=== PATIENT | female | born 1990 | race American Indian/Alaskan Native ===

== ENCOUNTER 2021-04-14 09:42 | Emergency (ER) | payer MEDICAID ==
[2021-04-14 11:42] LABS: Basophils # (Auto) 0.1 K/mm3 (0.0-0.1); Basophils % (Auto) 0.9 % (0.0-1.8); Eosinophils # (Auto) 0.1 K/mm3 (0.0-0.4); Eosinophils % (Auto) 1.7 % (0.0-4.3); Hematocrit 39.1 % (30.3-42.9); Hemoglobin 12.9 gm/dl (10.1-14.3); Lymphocytes # (Auto) 1.9 K/mm3 (1.2-5.4); Lymphocytes % (Auto) 35.2 % (13.4-35.0); Mean Corpuscular HGB Conc 33 % (30-34); Mean Corpuscular Volume 90 fl (79-97); Monocytes # (Auto) 0.4 K/mm3 (0.0-0.8); Monocytes % (Auto) 6.4 % (0.0-7.3); Platelet Count 206 K/mm3 (140-440); Red Blood Count 4.37 M/mm3 (3.65-5.03); Red Cell Distribution Width 14.3 % (13.2-15.2)
[2021-04-14 12:08] LABS: Alanine Aminotransferase 9 units/L (7-56); Blood Urea Nitrogen 12 mg/dL (7-17); Calcium 9.3 mg/dL (8.4-10.2); Hemolysis Index 0
[2021-04-14 12:15] LABS: BUN/Creatinine Ratio 17
--- NOTE | 2021-04-14 13:14 | XRay Report ---
XR chest routine 2V INDICATION / CLINICAL INFORMATION: chest pain, SOB. COMPARISON: None available. FINDINGS: SUPPORT DEVICES: None. HEART /PULMONARY VASCULATURE: Heart size is normal. No significant pulmonary vasculature congestion. LUNGS / PLEURA: No significant pulmonary or pleural abnormality. No pneumothorax. ADDITIONAL FINDINGS: No significant additional findings. IMPRESSION: 1. No acute findings. Signer Name: Bruno Escobar MD Signed: 04/14/2021 1:10 PM Workstation Name: [id number]
--- NOTE | 2021-04-14 21:35 | Emergency Department Report ---
ED General Adult HPI - General Chief complaint: Chest Pain Stated complaint: CHEST PAIN RIGHT ARM Time Seen by Provider: 04/14/21 20:30 Source: patient Mode of arrival: Ambulatory Limitations: No Limitations - History of Present Illness Initial comments: 31-year-old female with [facility] complaining of a few day history of cough and congestion associated with chest discomfort ache with no palliative factors coughing makes the chest chest discomfort worsen. Reports no hemoptysis no hematemesis hematochezia, no nausea, no vomiting no fevers chills or sweats -: Gradual Radiation: non-radiation Quality: dull Consistency: constant Improves with: none Worsens with: none Associated Symptoms: cough. denies: confusion, loss of appetite, rash, shortness of breath, syncope, weakness Treatments Prior to Arrival: none - Related Data Previous Rx's Medication Instructions Recorded Last Taken Type Albuterol Mdi (or & Nicu Only) 1 puff IH QID PRN #8.5 gram 04/14/21 Unknown Rx [ProAir HFA Inhaler] Ketorolac [Toradol] 10 mg PO Q6H PRN #20 tablet 04/14/21 Unknown Rx Allergies Allergy/AdvReac Type Severity Reaction Status Date / Time sulfamethoxazole Allergy Rash Verified 04/14/21 09:47 [From Bactrim] trimethoprim [From Bactrim] Allergy Rash Verified 04/14/21 09:47 ED Review of Systems ROS: Stated complaint: CHEST PAIN RIGHT ARM Other details as noted in HPI Comment: All other systems reviewed and negative ED Past Medical Hx - Past Medical History Previous Medical History?: Yes Hx Asthma: Yes - Medications Home Medications: Home Medications Medication Instructions Recorded Confirmed Last Taken Type Albuterol Mdi (or & Nicu Only) 1 puff IH QID PRN #8.5 gram 04/14/21 Unknown Rx [ProAir HFA Inhaler] Ketorolac [Toradol] 10 mg PO Q6H PRN #20 tablet 04/14/21 Unknown Rx ED Physical Exam - General Limitations: No Limitations General appearance: alert, in no apparent distress - Head Head exam: Present: atraumatic, normocephalic, normal inspection - Eye Eye exam: Present: normal appearance, PERRL, EOMI Pupils: Present: normal accommodation - ENT ENT exam: Present: normal exam, normal orophraynx, mucous membranes moist, TM's normal bilaterally - Neck Neck exam: Present: normal inspection, full ROM, lymphadenopathy - Respiratory Respiratory exam: Present: normal lung sounds bilaterally. Absent: respiratory distress, wheezes, rales, accessory muscle use, decreased breath sounds - Cardiovascular Cardiovascular Exam: Present: regular rate, normal rhythm. Absent: systolic murmur, diastolic murmur, rubs, gallop - GI/Abdominal GI/Abdominal exam: Present: soft, normal bowel sounds - Extremities Exam Extremities exam: Present: normal inspection, normal capillary refill - Back Exam Back exam: Present: normal inspection. Absent: CVA tenderness (R), CVA tenderness (L), paraspinal tenderness, vertebral tenderness - Neurological Exam Neurological exam: Present: alert, oriented X3, CN II-XII intact, normal gait - Psychiatric Psychiatric exam: Present: normal affect, normal mood. Absent: anxious, flat affect - Skin Skin exam: Present: warm, dry, intact, normal color. Absent: rash, diaphoretic ED Course Vital Signs 04/14/21 04/14/21 09:59 21:40 Temperature 98 F 98.5 F Pulse Rate 91 H 97 H Respiratory 16 18 Rate Blood Pressure 138/86 119/97 [Right] O2 Sat by Pulse 98 99 Oximetry ED Medical Decision Making - Lab Data Result diagrams: 04/14/21 10:20 04/14/21 10:20 - Radiology Data Radiology results: report reviewed [address] [address] XRay Report Signed Patient: JACEY TELLO MR#: [id number] : 1990 Acct:[id number] Age/Sex: 31 / F ADM Date: 04/14/21 Loc: ED Attending Dr: Ordering Physician: SERINA BARRAGAN Date of Service: 04/14/21 Procedure(s): XR chest routine 2V Accession Number(s): [id number] cc: SERINA BARRAGAN Fluoro Time In Minutes: XR chest routine 2V INDICATION / CLINICAL INFORMATION: chest pain, SOB. COMPARISON: None available. FINDINGS: SUPPORT DEVICES: None. HEART /PULMONARY VASCULATURE: Heart size is normal. No significant pulmonary vasculature congestion. LUNGS / PLEURA: No significant pulmonary or pleural abnormality. No pneumothorax. ADDITIONAL FINDINGS: No significant additional findings. IMPRESSION: 1. No acute findings. Signer Name: Cecilio Duff MD Signed: 04/14/2021 1:10 PM Workstation Name: [email or web address] Transcribed By: JS Dictated By: CECILIO DUFF MD Electronically Authenticated By: CECILIO DUFF MD Signed Date/Time: 04/14/21 1310 DD/ 1309 TD/TT: Print Cancel - Medical Decision Making This patient presents with acute cough, most consistent with viral illness. Differential diagnosis includes asthma, bronchitis, hyperreactive airway disease, pneumonia, COVID-19. Presentation not consistent with acute bacterial pneumonia, influenza, asthma, transient airway hyperresponsiveness. Presentation not consistent with chronic causes of cough (including GERD, asthma, postnasal discharge, medication side effect, CHF, lung cancer or mass). Plan: supportive care, reassess Critical care attestation.: If time is entered above; I have spent that time in minutes in the direct care of this critically ill patient, excluding procedure time. ED Disposition Clinical Impression: Cough, [id number] syndrome Disposition: 01 HOME / SELF CARE / HOMELESS Is pt being admited?: No Does the pt Need Aspirin: No Condition: Stable Instructions: Cool Mist Vaporizer, COVID-19 Frequently Asked Questions, Cough, Adult, [id number], COVID-19: How to Protect Yourself and Others - [facility] Prescriptions: Albuterol Mdi (or & Nicu Only) [ProAir HFA Inhaler] 1 puff IH QID PRN #8.5 gram PRN Reason: sob Ketorolac [Toradol] 10 mg PO Q6H PRN #20 tablet PRN Reason: Pain Referrals: [facility] [Provider Group] - 3-5 Days PRIMARY CARE, [Primary Care Provider] - 3-5 Days Forms: Work/School Release Form(ED)
[2021-04-14 21:46] VITALS: BP 119/97
--- NOTE | 2021-04-17 09:02 | Electrocardiograph Report ---
[facility] Test Date: 2021-04-14 Test Time: 09:49:19 Pat Name: JACEY TELLO Department: Room: Gender: F Nurse Manager: CYNTHIA LOPEZ : 1990 Requested By: SERINA BARRAGAN Order Number: [id number] Reading MD: Lorne Morataya Measurements Intervals [place] Rate: 95 P: 12 SD: 170 QRS: 45 QRSD: 82 T: 42 QT: 355 QTc: 447 Interpretive Statements Sinus rhythm No previous ECG available for comparison Electronically Signed On 04-17-2021 9:02:23 EDT by Lorne Morataya
== END 2021-04-14 21:40 | disposition home or self-care (01) ==
LOC: ED 09:42
DX: R07.9 Chest pain, unspecified (principal); J45.909 Unspecified asthma, uncomplicated; Z88.2 Allergy status to sulfonamides
CPT/HCPCS: 36415; 71046; 80053; 84484; 84703; 85025; 93005; 99283